=== PATIENT | female | born 1940 | race Two or more races ===

== ENCOUNTER 2018-09-20 16:09 | Inpatient (IN) | payer OTHER ==
[~2018-09-20] VITALS: Ht 149.9 cm; Wt 76.9 kg
[~2018-09-20 16:09] MED LIST: DIGO0.124; FELO5TAB; FURO20TA3; METO25TA62; NIAC500T58; OMEP20TA44; VALS160T53; WARF5INJ
[2018-09-20 16:48] LABS: Basophils # (auto) 0.1 uL; Eosinophils # (auto) 0.1 uL; Hematocrit 35.2 % (36.0-46.0); Hemoglobin 10.9 g/dL (12.2-16.2); Lymphocytes # (auto) 1.2 uL; Lymphocytes % (auto) 15.4 % (10.0-50.0); Mean Corpuscular Hemoglobin 22.6 pg (28.0-32.0); Mean Corpuscular Hgb Conc. 30.9 g/dL (32.0-36.0); Mean Corpuscular Volume 73.2 fL (80.0-100.0); Monocytes # (auto) 1.2 uL; Monocytes % (auto) 14.3 % (0.0-12.0); Neutrophils # (auto) 5.5 uL; Neutrophils % (auto) 68.3 % (37.0-80.0); Nucleated Red Blood Cells % 0.3 %; Platelet Count (auto) 358 10^3/uL (140-450); Red Blood Cells 4.81 10^6/uL (4.0-5.20); Red Cell Distribution Width 19.9 % (11.8-14.3); White Blood Cell 8.1 10^3/uL (4.4-10.8)
[2018-09-20 17:05] LABS: Alanine Aminotransferase 16 U/L (13-56); Albumin 3.7 g/dL (3.4-5.0); Anion Gap 11 (5-15); Blood Urea Nitrogen 8 mg/dL (7-18); Calcium 8.3 mg/dL (8.5-10.1); Carbon Dioxide 25 mmol/L (21-32); Chloride 100 mmol/L (98-107); Glucose 102 mg/dL (74-106); Sodium 136 mmol/L (136-145)
[2018-09-20 17:10] LABS: Alkaline Phosphatase 114 U/L (45-117); Aspartate Aminotransferase 18 U/L (15-37); BUN/Creatinine Ratio 11.1; Bilirubin, Total 0.5 mg/dL (0.2-1.0); GFR African American 100 mL/min; GFR Non-African American 83 mL/min; Total Protein 8.3 g/dL (6.4-8.2)
[2018-09-20] MEDS ORDERED: SODIUM CHLORIDE 0.9% 1,000 ML IV ONE (17:13)
[2018-09-20 17:40] LABS: Magnesium 1.7 mg/dL (1.6-2.6)
[2018-09-20 18:05] LABS: INR 1.81 (0.9-1.15); Partial Thromboplastin Time 36.1 sec (23.78-33.04); Prothrombin Time 18.7 sec (9.27-12.13)
[2018-09-20 18:08] LABS: Urine Bacteria NONE SEEN /hpf (None Seen); Urine Blood 1+ /uL (Negative); Urine Specific Gravity 1.016 (1.001-1.035); Urine WBC 5 /hpf (0 - 5)
[2018-09-20] MEDS ORDERED: cefTRIAXone 1GM/50ML D5W 50 ML IV ONE (19:00)
[2018-09-20] MEDS ORDERED: TEMAZEPAM 15 MG CAP PO PRN (21:00)
[2018-09-20] MEDS ORDERED: ONDANSETRON HCL 4 MG/2 ML VIAL IV PRN (21:00)
[2018-09-20] MEDS ORDERED: DOCUSATE SOD 100 MG CAP PO PRN (21:15)
--- NOTE | 2018-09-20 23:00 | NUR ---
Telemetry admit from [facility] admitted to Telemetry unit after SBAR received. Patient oriented to MONTEZ JOHNSON RN primary RN, unit, room, bed, and unit policies regarding patient care and visiting hours. Patient now on continuous telemetry monitoring, tele box # 2 and telemetry reading on arrival to unit is SR with PVC. Patient placed on bedside oxygen, weighed by bedscale and encouraged to call if they need something. All questions and concerns addressed, patient verbalized understanding. Addendum: 09/21/18 at 0519 by MONTEZ JOHNSON RN RN Upon admission, Patient's daughter was at bedside, when patient was asked about the flu and PNA vaccinations, patient refused to have either vaccine d/t patient stating she gets very bad reactions to them and feels as if she is going to . Patient verbalized that she does not want either vaccine now or upon discharge.
[2018-09-20 23:30] VITALS: BP 154/79
[2018-09-20] MEDS: HYDROcodone-ACET 5/325MG TAB PO PRN (23:43)
[2018-09-20 23:45] VITALS: BP 154/79
[2018-09-21] VITALS (8 sets, daily range): BP systolic 100–149; BP diastolic 59–78
--- NOTE | 2018-09-21 00:54 | NUR ---
Ricky PENG RN received call from [facility] regarding patient showing a change in rhythm on her tele monitor and was showing possible A-fib. RN performed a STAT EKG per protocol and confirmed A-fib. Vitals were also obtained and patient had a BP of 155/108 and a HR of 126. Patient was asymptomatic and complaining of no chest pain or SOB. Patient was calm and relaxed and asking RN for some water. Patient complained of no discomfort or distress. Hospitalist was paged and notified of patients condition/ situation. New orders were obtained. Patient was calm and resting peacefully in bed.
[2018-09-21] MEDS ORDERED: DILTIAZEM HCL 60 MG TAB PO ONE (02:00)
[2018-09-21] MEDS: FUROSEMIDE 40 MG TAB PO SCH ×2 (05:30→17:07)
[2018-09-21 05:59] LABS: Basophils # (auto) 0.1 uL; Eosinophils # (auto) 0 uL; Nucleated Red Blood Cells % 0.1 %; Red Cell Distribution Width 19.5 % (11.8-14.3)
[2018-09-21 06:03] LABS: Basophils % (auto) 0.9 % (0.0-2.0); Eosinophils % (auto) 0.7 % (0.0-7.0); Hematocrit 32.2 % (36.0-46.0); Hemoglobin 10.1 g/dL (12.2-16.2); Lymphocytes % (auto) 16.6 % (10.0-50.0); Mean Corpuscular Hemoglobin 22.9 pg (28.0-32.0); Mean Corpuscular Hgb Conc. 31.5 g/dL (32.0-36.0); Mean Corpuscular Volume 72.7 fL (80.0-100.0); Monocytes % (auto) 15.9 % (0.0-12.0); Neutrophils # (auto) 3.9 uL; Neutrophils % (auto) 65.9 % (37.0-80.0); Platelet Count (auto) 300 10^3/uL (140-450); Red Blood Cells 4.42 10^6/uL (4.0-5.20)
[2018-09-21 06:14] LABS: INR 1.58 (0.9-1.15); Partial Thromboplastin Time 34.4 sec (23.78-33.04); Prothrombin Time 16.5 sec (9.27-12.13)
[2018-09-21 06:17] LABS: BUN/Creatinine Ratio 17.6; Calcium 8.1 mg/dL (8.5-10.1); Potassium 3.9 mmol/L (3.5-5.1)
--- NOTE | 2018-09-21 07:30 | NUR ---
Opening Shift Note Received report from night nurse. Assumed care of patient, awake and alert. No S/S of distress/SOB or pain. Noted very weak and cannot lift herself. Instructed on POC and to call for assist PRN, will continue to monitor for changes Q1hr and PRN.
[2018-09-21] MEDS: PANTOPRAZOLE 40 MG TAB PO SCH (09:15)
[2018-09-21] MEDS: PHENAZOPYRIDINE HCL 100 MG TAB PO SCH ×3 (09:16→17:07)
[2018-09-21] MEDS ORDERED: METF-370 PO (10:16)
[2018-09-21] MEDS ORDERED: ALPR0.254 PO (10:16)
[2018-09-21] MEDS ORDERED: DILT240C49 PO (10:16)
[2018-09-21] MEDS ORDERED: ESCI10TA PO (10:16)
[2018-09-21] MEDS ORDERED: WARF5TAB71 PO (10:16)
[2018-09-21] MEDS ORDERED: ROSU10TA16 PO (10:16)
[2018-09-21] MEDS: ACETAMINOPHEN 500 MG TAB PO PRN (11:01)
--- NOTE | 2018-09-21 11:15 | NUR ---
DR. Pablo Villaseñor at bedside. Received verbal order to continue some POM: xanax, pro air breathing treatments every 6 hours, potassium 10mg PO daily, lipitor 20mg po at HS, accucheck ACHS with mild sliding scale, lexapro 10mg 1 tab daily, then remove restoril. Will continue care.
--- NOTE | 2018-09-21 11:20 | NUR ---
CALLED R.T. AND ASKED ABOUT THE ALTERNATIVE BREATHING TREATMENT FOR PRO-AIR INHALER. RT SAID WE CAN GIVE PATIENT ALBUTEROL AND ATROVENT. WILL CONTINUE CARE.
[2018-09-21] MEDS ORDERED: DEXTROSE (50%) 50ML SYRG IV PRN (11:30)
[2018-09-21] MEDS: InsuLIN REG 1unit/0.01ml Soln (100units/ml) SC SCH ×3 (11:30→22:00)
[2018-09-21] MEDS: ACCU-CHEK COMFORT CURVE STRIP VI SCH ×3 (11:40→22:00)
[2018-09-21] MEDS: DILTIAZEM HCL 120MG ER CAP PO SCH (11:40)
[2018-09-21] MEDS ORDERED: ALBUTEROL SULF 2.5 MG/0.5ML(0.5%) NEB SOLN NEB SCH (12:00)
[2018-09-21] MEDS: IPRATROPIUM BROM 0.5 MG/2.5ML INH SOL NEB SCH ×2 (14:18→18:43)
[2018-09-21] MEDS: ALBUTEROL SULF 2.5 MG/0.5ML(0.5%) NEB SOLN NEB SCH ×2 (14:18→18:43)
[2018-09-21] MEDS ORDERED: WARFARIN SODIUM 5 MG TAB PO ONE (17:00)
--- NOTE | 2018-09-21 18:21 | NUR ---
PATIENT REFUSED DINNER, SAID THAT SHE IS TOO NAUSEOUS TO EAT. GAVE ZOFRAN 4MG IV PRN FOR N/V ORDERED BY . WILL CONTINUE CARE. Addendum: 09/21/18 at 1823 by CALEB SANON RN WRONG PATIENT. DISREGARD ENTRY.
[2018-09-21] MEDS: HYDROcodone-ACET 5/325MG TAB PO PRN (19:35)
--- NOTE | 2018-09-21 20:46 | NUR ---
Opening Shift Note Assumed care of patient, awake and alert. No S/S of distress/SOB or pain. Insructed on POC and to call for assist PRN, will continue to monitor for changes Q1hr and PRN. Patient with expiratory wheezes. She is assisted to BR. Increased weakness noted. Patient complains of pain to lower abdomen and back. Medicated with [place] as ordered PRN. Family members at bedside.
[2018-09-21] MEDS: cefTRIAXone 1GM/50ML D5W 50 ML IV SCH (21:39)
[2018-09-21] MEDS: ALPRAZolam 0.25 MG TAB PO SCH (22:07)
[2018-09-21] MEDS: ATORVASTATIN 20 MG TAB PO SCH (22:08)
[2018-09-22] MEDS: ALBUTEROL SULF 2.5 MG/0.5ML(0.5%) NEB SOLN NEB SCH ×4 (00:25→19:51)
[2018-09-22] MEDS: IPRATROPIUM BROM 0.5 MG/2.5ML INH SOL NEB SCH ×4 (00:25→19:51)
[2018-09-22 02:59] VITALS: BP 124/69
[2018-09-22 05:00] VITALS: BP 118/62
[2018-09-22 05:52] LABS: INR 1.27 (0.9-1.15); Prothrombin Time 13.4 sec (9.27-12.13)
[2018-09-22] MEDS: FUROSEMIDE 40 MG TAB PO SCH ×2 (06:00→18:04)
[2018-09-22] MEDS: HYDROcodone-ACET 5/325MG TAB PO PRN ×2 (06:01→19:14)
[2018-09-22] MEDS: InsuLIN REG 1unit/0.01ml Soln (100units/ml) SC SCH ×4 (06:41→22:07)
[2018-09-22 07:20] LABS: Hematocrit 33.6 % (36.0-46.0); Hemoglobin 10.5 g/dL (12.2-16.2); Mean Corpuscular Hemoglobin 22.8 pg (28.0-32.0); Mean Corpuscular Hgb Conc. 31.1 g/dL (32.0-36.0); Mean Corpuscular Volume 73.1 fL (80.0-100.0); Platelet Count (auto) 301 10^3/uL (140-450); White Blood Cell 6.2 10^3/uL (4.4-10.8)
[2018-09-22 07:22] LABS: Band Neutrophils % (manual) 0; Blast Cells 0; Eosinophils % (manual) 0 (0-7); Metamyelocytes % 0; Myelocytes % 0; Promyelocytes % 0; Reactive Lymphocytes 0
--- NOTE | 2018-09-22 07:30 | NUR ---
PT AWAKE, ALERT, ORIENTED, COOPERATIVE OF CARE. DENIES PAIN AT MOMENT. EFFORTLESS BREATHING ON 3LNC. IV PRESENT TO LFA#22. BED IN LOWEST POSITION, CALL LIGHT WITHIN REACH. PROVIDED COMFORTABLE ENVIRONMENT. PATHWAY LEAR OF CLUTTER.
[2018-09-22 08:14] VITALS: BP 96/41
[2018-09-22] MEDS: PHENAZOPYRIDINE HCL 100 MG TAB PO SCH ×3 (08:46→18:04)
[2018-09-22] MEDS: CITALOPRAM HYDROBR 20 MG TAB PO SCH (08:52)
[2018-09-22] MEDS: POTASSIUM CHL 10 Meq TABLET PO SCH (08:52)
[2018-09-22] MEDS: PANTOPRAZOLE 40 MG TAB PO SCH (08:53)
[2018-09-22 09:24] LABS: Basophils % (manual) 1 (0.0-2.0); Lymphocytes % (manual) 18 (10.0-50.0); Monocytes % (manual) 8 (0-12)
[2018-09-22] MEDS: ACCU-CHEK COMFORT CURVE STRIP VI SCH ×3 (11:30→22:06)
[2018-09-22 11:53] VITALS: BP 131/69
[2018-09-22] MEDS: DILTIAZEM HCL 120MG ER CAP PO SCH (12:18)
[2018-09-22] MEDS ORDERED: OMEP20TA PO (13:12)
[2018-09-22] MEDS ORDERED: FURO20TA3 PO (13:12)
--- NOTE | 2018-09-22 14:30 | NUR ---
URINE SPECIMEN COLLECTED SENT TO LAB
[2018-09-22 16:30] VITALS: BP 102/43
[2018-09-22] MEDS ORDERED: WARFARIN SODIUM 2 MG TAB PO ONE (17:00)
--- NOTE | 2018-09-22 19:05 | NUR ---
Opening Shift Note Assumed care of patient, awake and alert, resting in bed watching television. No S/S of distress or SOB, no pain noted or reported at this time. Respirations are even and unlabored. Updated on pt. POC and instructed to call for assist as needed, pt verbalized understanding. Bed locked in lowest position, side rails up x2, call light within reach. Will continue to monitor for changes Q1hr and PRN.
[2018-09-22 22:00] VITALS: BP 107/60
[2018-09-22] MEDS: ALPRAZolam 0.25 MG TAB PO SCH (22:06)
[2018-09-22] MEDS: cefTRIAXone 1GM/50ML D5W 50 ML IV SCH (22:06)
[2018-09-22] MEDS: ATORVASTATIN 20 MG TAB PO SCH (22:06)
[2018-09-23] MEDS: IPRATROPIUM BROM 0.5 MG/2.5ML INH SOL NEB SCH ×4 (01:09→20:08)
[2018-09-23] MEDS: ALBUTEROL SULF 2.5 MG/0.5ML(0.5%) NEB SOLN NEB SCH ×4 (01:09→20:07)
[2018-09-23 04:40] VITALS: BP 125/65
[2018-09-23] MEDS: FUROSEMIDE 40 MG TAB PO SCH ×2 (06:24→17:35)
[2018-09-23] MEDS: InsuLIN REG 1unit/0.01ml Soln (100units/ml) SC SCH ×4 (06:25→21:56)
[2018-09-23] MEDS: ACCU-CHEK COMFORT CURVE STRIP VI SCH ×4 (06:25→21:48)
[2018-09-23 06:53] LABS: Red Blood Cells 4.52 10^6/uL (4.0-5.20); Red Cell Distribution Width 19.7 % (11.8-14.3)
[2018-09-23 06:55] LABS: Hematocrit 33.2 % (36.0-46.0); Hemoglobin 10.2 g/dL (12.2-16.2); Mean Corpuscular Hemoglobin 22.5 pg (28.0-32.0); Mean Corpuscular Hgb Conc. 30.6 g/dL (32.0-36.0); Mean Corpuscular Volume 73.5 fL (80.0-100.0); Platelet Count (auto) 283 10^3/uL (140-450); White Blood Cell 4.4 10^3/uL (4.4-10.8)
[2018-09-23 07:00] LABS: Basophils % (manual) 0 (0.0-2.0); Blast Cells 0; Eosinophils % (manual) 0 (0-7); Metamyelocytes % 0; Myelocytes % 0; Promyelocytes % 0; Reactive Lymphocytes 0
[2018-09-23 07:19] LABS: INR 1.34 (0.9-1.15); Prothrombin Time 13.3 sec (9.27-12.13)
[2018-09-23 07:43] LABS: Band Neutrophils % (manual) 2; Lymphocytes % (manual) 31 (10.0-50.0); Monocytes % (manual) 7 (0-12)
[2018-09-23] MEDS: POTASSIUM CHL 10 Meq TABLET PO SCH (08:59)
[2018-09-23] MEDS: PHENAZOPYRIDINE HCL 100 MG TAB PO SCH ×3 (08:59→17:34)
[2018-09-23] MEDS: PANTOPRAZOLE 40 MG TAB PO SCH (08:59)
[2018-09-23 09:00] VITALS: BP 126/64
[2018-09-23] MEDS: CITALOPRAM HYDROBR 20 MG TAB PO SCH (09:00)
--- NOTE | 2018-09-23 09:00 | NUR ---
PASSED MORNING MEDICATIONS, PT TOLERATED WELL. PT DENIES DISCOMFORT AT MOMENT. ON 3LNC WITH EXPIRATORY WHEEZES. IV PRESENT TO LFA#22. BED IN LOWEST POSITION, CALL LIGHT WITHIN REACH. WILL CONTINUE TO MONITOR.
[2018-09-23] MEDS: DILTIAZEM HCL 120MG ER CAP PO SCH (09:04)
[2018-09-23] MEDS ORDERED: methylPREDNISolone SOD SUCC 125 MG/2 ML VL IV ONE (13:00)
[2018-09-23 13:20] VITALS: BP 137/69
--- NOTE | 2018-09-23 15:53 | NUR ---
DR. GARAY MADE AWARE OF ABG ON ROOM AIR RESULTS AND CHEST X-RAY. RECEIVED ORDER FOR HOME O2 CONSULTATION. ORDER IN. CLOCK MECHANIC NOTIFIED.
--- NOTE | 2018-09-23 16:20 | NUR ---
Incentive spirometer and teaching provided with return demonstration. Daughter at bedside for teaching session. Patient is compliant in care.
[2018-09-23 17:00] VITALS: BP 122/67
[2018-09-23] MEDS ORDERED: WARFARIN SODIUM 2 MG TAB PO ONE (17:00)
--- NOTE | 2018-09-23 18:02 | NUR ---
Received call from monitor, patient presenting arrhythmia brief burst of V-tach, checked on patient and patient was exerting self; patient stated. Patient is asymptomatic, denies chest palpitations, pressure. Call light within reach.
--- NOTE | 2018-09-23 19:15 | NUR ---
Opening Shift Note Assumed care of patient, awake and alert, resting in bed with family at bedside. No S/S of distress or SOB, no pain noted or reported at this time. Respirations are even and unlabored on 3L NC. Updated pt. on POC and instructed to call for assist as needed, pt verbalized understanding. Bed locked in lowest position, side rails up x2, call light within reach. Will continue to monitor for changes Q1hr and PRN.
[2018-09-23] MEDS: cefTRIAXone 1GM/50ML D5W 50 ML IV SCH (21:48)
[2018-09-23] MEDS: ALPRAZolam 0.25 MG TAB PO SCH (21:48)
[2018-09-23] MEDS: methylPREDNISolone SOD SUCC 125 MG/2 ML VL IV SCH (21:48)
[2018-09-23] MEDS: ATORVASTATIN 20 MG TAB PO SCH (21:48)
[2018-09-23 22:00] VITALS: BP 122/74
[2018-09-24] MEDS: ALBUTEROL SULF 2.5 MG/0.5ML(0.5%) NEB SOLN NEB SCH ×4 (01:03→20:07)
[2018-09-24] MEDS: IPRATROPIUM BROM 0.5 MG/2.5ML INH SOL NEB SCH ×4 (01:03→20:07)
[2018-09-24 04:55] VITALS: BP 150/79
[2018-09-24 06:30] LABS: INR 1.48 (0.9-1.15); Partial Thromboplastin Time 33.3 sec (23.78-33.04); Prothrombin Time 15.5 sec (9.27-12.13)
[2018-09-24] MEDS: FUROSEMIDE 40 MG TAB PO SCH ×2 (06:33→17:27)
[2018-09-24] MEDS: InsuLIN REG 1unit/0.01ml Soln (100units/ml) SC SCH ×4 (06:33→22:08)
[2018-09-24] MEDS: methylPREDNISolone SOD SUCC 125 MG/2 ML VL IV SCH ×3 (06:33→22:07)
[2018-09-24] MEDS: ACCU-CHEK COMFORT CURVE STRIP VI SCH ×4 (06:34→22:08)
--- NOTE | 2018-09-24 07:56 | NUR ---
CLOSING SHIFT NOTE: Report given to DAY RNGladis. Endorsed care of patient.
[2018-09-24] MEDS: CITALOPRAM HYDROBR 20 MG TAB PO SCH (08:37)
[2018-09-24] MEDS: PHENAZOPYRIDINE HCL 100 MG TAB PO SCH ×3 (08:37→18:23)
[2018-09-24] MEDS: POTASSIUM CHL 10 Meq TABLET PO SCH (08:37)
[2018-09-24] MEDS: DILTIAZEM HCL 120MG ER CAP PO SCH (08:37)
[2018-09-24] MEDS: PANTOPRAZOLE 40 MG TAB PO SCH (08:37)
[2018-09-24 09:08] VITALS: BP 124/68
--- NOTE | 2018-09-24 10:28 | NUR ---
assessment Patient is a 78 year old female who is alert and oriented. Patients cognitive abilities are intact. Prior to admission patient lived home alone and functioned with assistance from her family. Per patient her grandson stays with her at night. Per patient she has a fww, and a cane for home use. Patients PCP is Dr Mitchell. Per patient she will return home to her prior living arrangements post discharge and family will transport her home. I informed patient she has a right to speak to a director of social work regarding all care. I informed patient she has a right to participate in any and all discharge planning. Patient is aware of visiting hours on the hospital floor. I informed patient she has a right to privacy. Patient does not have a POA and advanced directive. I have offered patient information on POA and advanced directives. I informed the patient the advantages and benefits of having an Advanced Directive. Patient verbalized understanding and agreed to discharge plan. Per ss consult Home 02 at 4LPM nasal canula. MD order has been sent to . Waiting on ETA now. Addendum: 09/24/18 at 1121 by Jemima Mcgee Amended: Links added.
[2018-09-24 11:47] VITALS: BP 115/63
--- NOTE | 2018-09-24 12:05 | NUR ---
1200 MED NEB TX NOT ADMINISTERED. PT AT PROCEDURE AT THIS TIME. RN LAVERNE AWARE OF TX NON ADMINISTERED. WILL CONTINUE TO MONITOR.
[2018-09-24] MEDS ORDERED: IOHEXOL 350 MG/ML 100ML IJ ONE (12:06)
--- NOTE | 2018-09-24 14:16 | NUR ---
oxygen saturation on room air O2 saturation stayed between 87-88% on room air
--- NOTE | 2018-09-24 14:59 | NUR ---
Nutrition Assessment Notes please see attached link for complete assessment Est. Needs ABW [id number] kcal (20-23 kcal/kgBW), 61-67 gms pro (1.0-1.1 gms/kgBW). Will continue to monitor pertinent labs and reassess nutrient need prn Addendum: 09/24/18 at [address] Amended: Links added.
[2018-09-24 16:32] VITALS: BP 157/83
--- NOTE | 2018-09-24 16:42 | NUR ---
re-assessment has delivered 02 to bedside. Addendum: 09/24/18 at 1642 by Jemima CEJA Amended: Links added.
[2018-09-24] MEDS ORDERED: WARFARIN SODIUM 2 MG TAB PO ONE (17:00)
[2018-09-24] MEDS: cefTRIAXone 1GM/50ML D5W 50 ML IV SCH (20:06)
[2018-09-24 20:54] VITALS: BP 157/83
[2018-09-24 22:00] VITALS: BP 138/60
[2018-09-24] MEDS: ATORVASTATIN 20 MG TAB PO SCH (22:07)
[2018-09-24] MEDS: ALPRAZolam 0.25 MG TAB PO SCH (22:07)
[2018-09-25] MEDS: ALBUTEROL SULF 2.5 MG/0.5ML(0.5%) NEB SOLN NEB SCH ×4 (00:12→18:29)
[2018-09-25] MEDS: IPRATROPIUM BROM 0.5 MG/2.5ML INH SOL NEB SCH ×4 (00:12→18:29)
[2018-09-25 05:33] VITALS: BP 151/86
[2018-09-25] MEDS: methylPREDNISolone SOD SUCC 125 MG/2 ML VL IV SCH ×3 (06:01→21:23)
[2018-09-25] MEDS: FUROSEMIDE 40 MG TAB PO SCH ×2 (06:01→17:33)
[2018-09-25 06:23] LABS: INR 2.03 (0.9-1.15); Prothrombin Time 20.9 sec (9.27-12.13)
[2018-09-25 06:27] LABS: Basophils # (auto) 0 uL; Basophils % (auto) 0.1 % (0.0-2.0); Eosinophils # (auto) 0 uL; Hemoglobin 10.4 g/dL (12.2-16.2); Mean Corpuscular Hemoglobin 22.7 pg (28.0-32.0); Monocytes # (auto) 0.3 uL
[2018-09-25 06:29] LABS: Hematocrit 33.6 % (36.0-46.0); Lymphocytes # (auto) 0.9 uL; Lymphocytes % (auto) 10.9 % (10.0-50.0); Mean Corpuscular Volume 73.3 fL (80.0-100.0); Monocytes % (auto) 3.5 % (0.0-12.0); Neutrophils # (auto) 7.1 uL; Neutrophils % (auto) 85.5 % (37.0-80.0); Nucleated Red Blood Cells % 0.1 %; Platelet Count (auto) 310 10^3/uL (140-450); Red Blood Cells 4.58 10^6/uL (4.0-5.20); Red Cell Distribution Width 19.3 % (11.8-14.3); White Blood Cell 8.3 10^3/uL (4.4-10.8)
[2018-09-25] MEDS: InsuLIN REG 1unit/0.01ml Soln (100units/ml) SC SCH ×4 (06:56→21:24)
[2018-09-25] MEDS: ACCU-CHEK COMFORT CURVE STRIP VI SCH ×4 (06:57→21:24)
--- NOTE | 2018-09-25 07:50 | NUR ---
Opening Shift Note Assumed care of patient, resting in bed with eyes closed, respirations even and unlabored. No S/S of distress/SOB or pain. POC board updated, will continue to monitor for changes Q1hr and PRN. NOTE: Home oxygen tank at bedside.
[2018-09-25 09:00] VITALS: BP 154/80
[2018-09-25] MEDS: PANTOPRAZOLE 40 MG TAB PO SCH (09:16)
[2018-09-25] MEDS: PHENAZOPYRIDINE HCL 100 MG TAB PO SCH ×3 (09:16→17:33)
[2018-09-25] MEDS: POTASSIUM CHL 10 Meq TABLET PO SCH (09:16)
[2018-09-25] MEDS: CITALOPRAM HYDROBR 20 MG TAB PO SCH (09:17)
[2018-09-25] MEDS: DILTIAZEM HCL 120MG ER CAP PO SCH (09:17)
--- NOTE | 2018-09-25 09:25 | NUR ---
SOLUTIONS ARCHITECT ASSISTED WITH EDUCATING PATIENT ON MORNING MEDICATIONS.
--- NOTE | 2018-09-25 10:33 | NUR ---
ROUNDDELORIS Villaseñor rounding on patient with primary RN and patients daughter at bedside. Plan of care discussed with daughters assistance for translation. Pulmonary consult will be placed by .
--- NOTE | 2018-09-25 10:34 | NUR ---
Dr. Oscar made aware of pulmonary consult.
--- NOTE | 2018-09-25 10:40 | NUR ---
DAUGHTER DOLLY SARAH [phone] WOULD LIKE UPDATES ON PATIENT.
[2018-09-25 13:00] VITALS: BP 148/84
--- NOTE | 2018-09-25 14:20 | NUR ---
VTACH Received call from [facility] stating patient had run of VTACH. Patient resting in bed, no of complaints of chest pain or s/s distress. Attempted to call Dr Villaseñor unsuccessful. inbound call center representative hospitalist Jose Fernandez made. Tele strip placed in chart.
[2018-09-25 17:00] VITALS: BP 128/66
[2018-09-25] MEDS ORDERED: WARFARIN SODIUM 2 MG TAB PO ONE (17:00)
--- NOTE | 2018-09-25 19:30 | NUR ---
Opening shift note Patient in bed alert and oriented x 4, verbally coherent, able to make needs known in Luxembour[place]. Daughter at bedside for translation. Patient's respiration even and unlabored, denies pain and discomfort at this time. Plan of care discussed, patient verbalized understanding. All needs attended, will continue to monitor.
[2018-09-25] MEDS: cefTRIAXone 1GM/50ML D5W 50 ML IV SCH (21:15)
[2018-09-25] MEDS: ATORVASTATIN 20 MG TAB PO SCH (21:18)
[2018-09-25] MEDS: ACETAMINOPHEN 500 MG TAB PO PRN (21:19)
[2018-09-25] MEDS: ALPRAZolam 0.25 MG TAB PO SCH (21:19)
[2018-09-25 21:45] VITALS: BP 144/75
[2018-09-26] MEDS: ALBUTEROL SULF 2.5 MG/0.5ML(0.5%) NEB SOLN NEB SCH ×4 (00:23→18:51)
[2018-09-26] MEDS: IPRATROPIUM BROM 0.5 MG/2.5ML INH SOL NEB SCH ×4 (00:23→18:51)
[2018-09-26 04:50] VITALS: BP 149/69
[2018-09-26] MEDS: methylPREDNISolone SOD SUCC 125 MG/2 ML VL IV SCH ×3 (05:33→21:08)
[2018-09-26] MEDS: FUROSEMIDE 40 MG TAB PO SCH ×2 (05:36→17:49)
[2018-09-26] MEDS: ACCU-CHEK COMFORT CURVE STRIP VI SCH ×4 (05:48→21:08)
[2018-09-26] MEDS: InsuLIN REG 1unit/0.01ml Soln (100units/ml) SC SCH ×4 (05:49→21:09)
[2018-09-26 07:00] LABS: INR 2.29 (0.9-1.15); Partial Thromboplastin Time 33.5 sec (23.78-33.04); Prothrombin Time 23.4 sec (9.27-12.13)
--- NOTE | 2018-09-26 07:30 | NUR ---
Opening Shift Note Assumed care of patient, awake and alert, sitting up in bed eating breakfast. No S/S of distress/SOB or pain. Instructed on POC and to call for assist PRN, will continue to monitor for changes Q1hr and PRN.
[2018-09-26] MEDS: PHENAZOPYRIDINE HCL 100 MG TAB PO SCH ×3 (08:46→17:49)
[2018-09-26 08:53] VITALS: BP 139/69
--- NOTE | 2018-09-26 09:01 | NUR ---
URINE CULTURE Patient educated on importance of urine sample collection and proper technique. Repeat urine culture obtained and sent to lab.
[2018-09-26] MEDS: DILTIAZEM HCL 120MG ER CAP PO SCH (09:14)
[2018-09-26] MEDS: PANTOPRAZOLE 40 MG TAB PO SCH (09:14)
[2018-09-26] MEDS: CITALOPRAM HYDROBR 20 MG TAB PO SCH (09:14)
[2018-09-26] MEDS: POTASSIUM CHL 10 Meq TABLET PO SCH (09:14)
[2018-09-26 13:00] VITALS: BP 161/97
[2018-09-26 14:00] VITALS: BP 140/81
[2018-09-26] MEDS ORDERED: HYDROcodone-ACET 5/325MG TAB PO PRN (16:45)
[2018-09-26] MEDS ORDERED: WARFARIN SODIUM 2 MG TAB PO ONE (17:00)
[2018-09-26 17:05] VITALS: BP 140/74
--- NOTE | 2018-09-26 19:30 | NUR ---
Opening shift note Patient ambulating from bathroom to bed assisted by PLATE MOLDER. Patient alert and oriented x 4, verbally coherent, able to make needs known. Patient denies pain and discomfort at this time. Plan of care discussed, patient verbalized understanding. Patient requested for Jello. All needs attended, will continue to monitor.
[2018-09-26] MEDS: ATORVASTATIN 20 MG TAB PO SCH (21:08)
[2018-09-26] MEDS: ALPRAZolam 0.25 MG TAB PO SCH (21:08)
[2018-09-26] MEDS: cefTRIAXone 1GM/50ML D5W 50 ML IV SCH (21:08)
[2018-09-26 21:41] VITALS: BP 155/76
[2018-09-27] VITALS (7 sets, daily range): BP systolic 138–157; BP diastolic 67–96
[2018-09-27] MEDS: IPRATROPIUM BROM 0.5 MG/2.5ML INH SOL NEB SCH ×4 (00:48→19:16)
[2018-09-27] MEDS: ALBUTEROL SULF 2.5 MG/0.5ML(0.5%) NEB SOLN NEB SCH ×4 (00:48→19:16)
[2018-09-27] MEDS: ACETAMINOPHEN 500 MG TAB PO PRN (04:25)
[2018-09-27 04:53] LABS: Hematocrit 35.6 % (36.0-46.0); Mean Corpuscular Hemoglobin 22.4 pg (28.0-32.0); White Blood Cell 7.5 10^3/uL (4.4-10.8)
[2018-09-27 04:56] LABS: Mean Corpuscular Hgb Conc. 30.8 g/dL (32.0-36.0); Mean Corpuscular Volume 72.8 fL (80.0-100.0); Platelet Count (auto) 325 10^3/uL (140-450); Red Blood Cells 4.89 10^6/uL (4.0-5.20); Red Cell Distribution Width 19.1 % (11.8-14.3)
[2018-09-27 05:04] LABS: Basophils % (manual) 0 (0.0-2.0); Blast Cells 0; Eosinophils % (manual) 0 (0-7); Metamyelocytes % 0; Myelocytes % 0; Promyelocytes % 0; Reactive Lymphocytes 0
[2018-09-27 05:07] LABS: INR 2.48 (0.9-1.15); Prothrombin Time 25.2 sec (9.27-12.13)
[2018-09-27 05:09] LABS: Calcium 8.1 mg/dL (8.5-10.1); Potassium 3.4 mmol/L (3.5-5.1)
[2018-09-27 05:11] LABS: BUN/Creatinine Ratio 24.6
[2018-09-27] MEDS: methylPREDNISolone SOD SUCC 125 MG/2 ML VL IV SCH ×3 (05:42→21:28)
[2018-09-27] MEDS: FUROSEMIDE 40 MG TAB PO SCH ×2 (05:43→17:07)
[2018-09-27] MEDS: InsuLIN REG 1unit/0.01ml Soln (100units/ml) SC SCH ×4 (05:48→21:29)
[2018-09-27] MEDS: ACCU-CHEK COMFORT CURVE STRIP VI SCH ×4 (05:48→21:29)
[2018-09-27 06:33] LABS: Band Neutrophils % (manual) 2; Lymphocytes % (manual) 10 (10.0-50.0); Monocytes % (manual) 1 (0-12)
--- NOTE | 2018-09-27 07:20 | NUR ---
Opening Shift Note Received report from Domonique VALE. Assumed care of patient, awake and alert. No S/S of distress/SOB or pain. NOted Latvian speaking, speaks and understands little Lebanese. Instructed on POC and to call for assist PRN, will continue to monitor for changes Q1hr and PRN.
[2018-09-27] MEDS: PHENAZOPYRIDINE HCL 100 MG TAB PO SCH ×3 (08:21→17:07)
[2018-09-27] MEDS: DILTIAZEM HCL 120MG ER CAP PO SCH (10:21)
[2018-09-27] MEDS: PANTOPRAZOLE 40 MG TAB PO SCH (10:21)
[2018-09-27] MEDS: POTASSIUM CHL 10 Meq TABLET PO SCH (10:21)
[2018-09-27] MEDS: CITALOPRAM HYDROBR 20 MG TAB PO SCH (10:21)
--- NOTE | 2018-09-27 11:10 | NUR ---
Dr. Thompson at bedside. Cardiology consult ff up done.
--- NOTE | 2018-09-27 14:28 | NUR ---
Dr Dumont at bedside.
--- NOTE | 2018-09-27 14:54 | NUR ---
Nutrition Follow-up Notes Wt.: 78.1 kg as of yesterday Pt's on oxygen via nasal cannula, asleep, no immediate family member at bedside during rounds this morning. Pt's no signs of distress noted earlier, currently on Consistent Carb diet with adequate PO intake aeb 90% ave. consumed meals (x7) in last 2.5 days. Noted pt's for active Cardiology and Pulmonary consults. Est. Needs ABW [id number] kcal (20-23 kcal/kgBW), 61-67 gms pro (1.0-1.1 gms/kgBW). Will continue to monitor pertinent labs and reassess nutrient need prn Labs: Gluc 277 H, Cl 94 L, K 34 L, CO2 34 H, Ca 8.1 H; HbA1c 7.0 H Skin: Ladarius scale 20 low risk, skin intact per plaster and stucco worker. GI: Pt had 1 BM this morning per plaster and stucco worker. PES: Altered nutrition related lab values r/t current/chronic medical condition aeb hyperglcyemia, elev A1C, hypocalcemia Obesity r/t hx food intake more than body requirement aeb 172% IBW, BMI 34.8 kg/m2 and increased body adiposity. Will continue to monitor PO intake, skin status, pertinent labs and weight trend. F/u in 3 to 5 days. Rec.: 1.) Consider Soft Consistent Low Carb: 45 gms/meal,Cardiac: 2 gms Na, Low Chol, Low Fat diet. 2.) Continue close supervision during meals. 2.) Refer pt to CDE/RD for further nutrition education and weight monitoring upon discharge. 3.) Continue current plan of care.
[2018-09-27] MEDS ORDERED: WARFARIN SODIUM 1 MG TAB PO ONE (17:00)
--- NOTE | 2018-09-27 19:00 | NUR ---
Opening Shift Note Assumed care of patient, awake and alert. No S/S of distress/SOB or pain. Instructed on POC and to call for assist PRN, will continue to monitor for changes Q1hr and PRN. Side rails up x2. Bed locked in lowest position. Call light within reach.
[2018-09-27] MEDS: ACETYLCYSTEINE 10 %(100MG/ML) SOL 4ML NEB SCH (19:17)
[2018-09-27] MEDS: cefTRIAXone 1GM/50ML D5W 50 ML IV SCH (21:28)
[2018-09-27] MEDS: ATORVASTATIN 20 MG TAB PO SCH (21:28)
[2018-09-27] MEDS: ALPRAZolam 0.25 MG TAB PO SCH (21:29)
[2018-09-28] MEDS: IPRATROPIUM BROM 0.5 MG/2.5ML INH SOL NEB SCH ×4 (01:19→20:05)
[2018-09-28] MEDS: ALBUTEROL SULF 2.5 MG/0.5ML(0.5%) NEB SOLN NEB SCH ×4 (01:19→20:05)
[2018-09-28] MEDS: ACETYLCYSTEINE 10 %(100MG/ML) SOL 4ML NEB SCH ×4 (01:20→20:05)
--- NOTE | 2018-09-28 01:56 | NUR ---
Rounds Patient in bed asleep with no signs of distress/sob/pain. Will continue to monitor.
[2018-09-28 05:15] VITALS: BP 159/76
[2018-09-28] MEDS: methylPREDNISolone SOD SUCC 125 MG/2 ML VL IV SCH ×3 (06:32→17:22)
[2018-09-28] MEDS: FUROSEMIDE 40 MG TAB PO SCH ×2 (06:32→17:24)
[2018-09-28] MEDS: ACCU-CHEK COMFORT CURVE STRIP VI SCH ×4 (06:32→21:14)
[2018-09-28] MEDS: InsuLIN REG 1unit/0.01ml Soln (100units/ml) SC SCH ×4 (06:33→21:20)
[2018-09-28 06:41] LABS: INR 2.31 (0.9-1.15); Prothrombin Time 23.6 sec (9.27-12.13)
--- NOTE | 2018-09-28 07:07 | NUR ---
Endorsed care to day shift RN.
--- NOTE | 2018-09-28 07:25 | NUR ---
Opening Shift Note Received report from Terence VALE. Assumed care of patient, awake and alert. No S/S of distress/SOB or pain. Assisted to bedside commode, did bowel movement successfully. Instructed on POC and to call for assist PRN, will continue to monitor for changes Q1hr and PRN.
[2018-09-28] MEDS: PHENAZOPYRIDINE HCL 100 MG TAB PO SCH ×3 (07:36→17:23)
[2018-09-28 08:00] VITALS: BP 153/87
[2018-09-28 08:13] VITALS: BP 153/87
[2018-09-28] MEDS: POTASSIUM CHL 10 Meq TABLET PO SCH (09:28)
[2018-09-28] MEDS: DILTIAZEM HCL 120MG ER CAP PO SCH (09:29)
[2018-09-28] MEDS: CITALOPRAM HYDROBR 20 MG TAB PO SCH (09:30)
[2018-09-28] MEDS: PANTOPRAZOLE 40 MG TAB PO SCH (09:31)
[2018-09-28 12:30] VITALS: BP 124/74
[2018-09-28 16:43] VITALS: BP 147/85
[2018-09-28] MEDS ORDERED: WARFARIN SODIUM 2 MG TAB PO ONE (17:00)
[2018-09-28] MEDS: ACETAMINOPHEN 500 MG TAB PO PRN (17:42)
--- NOTE | 2018-09-28 18:20 | NUR ---
IV insertion Anothere IV access obtained for stress test tomorrow, via clean sterile technique by inserting gauge catheter 22 at left forearm after 1 attempt. IV secured properly. No trauma to site. Patient tolerated well.
[2018-09-28] MEDS: cefTRIAXone 1GM/50ML D5W 50 ML IV SCH (21:14)
[2018-09-28] MEDS: ALPRAZolam 0.25 MG TAB PO SCH (21:14)
[2018-09-28] MEDS: ATORVASTATIN 20 MG TAB PO SCH (21:14)
[2018-09-28 22:18] VITALS: BP 141/70
[2018-09-29] MEDS: IPRATROPIUM BROM 0.5 MG/2.5ML INH SOL NEB SCH ×4 (01:36→18:54)
[2018-09-29] MEDS: ALBUTEROL SULF 2.5 MG/0.5ML(0.5%) NEB SOLN NEB SCH ×4 (01:36→18:54)
--- NOTE | 2018-09-29 01:36 | NUR ---
Rounds RT at bedside for a breathing treatment. No signs of distress. Will continue to monitor.
[2018-09-29] MEDS: ACETYLCYSTEINE 10 %(100MG/ML) SOL 4ML NEB SCH ×4 (01:37→18:55)
[2018-09-29 05:39] VITALS: BP 165/81
[2018-09-29] MEDS: methylPREDNISolone SOD SUCC 125 MG/2 ML VL IV SCH ×2 (06:36→17:56)
[2018-09-29] MEDS: FUROSEMIDE 40 MG TAB PO SCH ×2 (06:37→17:57)
[2018-09-29] MEDS: ACCU-CHEK COMFORT CURVE STRIP VI SCH ×4 (06:37→21:08)
[2018-09-29] MEDS: InsuLIN REG 1unit/0.01ml Soln (100units/ml) SC SCH ×4 (06:37→21:08)
[2018-09-29 06:52] LABS: INR 2.57 (0.9-1.15); Partial Thromboplastin Time 31.5 sec (23.78-33.04); Prothrombin Time 26.1 sec (9.27-12.13)
[2018-09-29 06:57] LABS: Potassium 3.1 mmol/L (3.5-5.1)
[2018-09-29 07:02] LABS: Calcium 8.5 mg/dL (8.5-10.1)
[2018-09-29 07:08] LABS: Bilirubin, Total 0.4 mg/dL (0.2-1.0); Total Protein 7.1 g/dL (6.4-8.2)
--- NOTE | 2018-09-29 07:20 | NUR ---
Endorsed care to day shift RN.
[2018-09-29 08:00] VITALS: BP 143/76
[2018-09-29 08:21] VITALS: BP 143/76
[2018-09-29] MEDS ORDERED: ADENOSINE 66 MG in GIVE UN-DILUTED 0 ML IV STA (08:28)
--- NOTE | 2018-09-29 08:32 | NUR ---
TACHYCARDIA Received call from KWABENA stating patient's heart rate was in the 150's. Assessed patient who was in the restroom accompanied by daughter, nasal cannula in position connected to 3L O2. Patient appeared asymptomatic, will continue to monitor.
--- NOTE | 2018-09-29 08:40 | NUR ---
Opening Shift Note Assumed care of patient, awake, alert and oriented x 4. No S/S of distress/SOB or pain. Daughter is at bedside. Pt and daughter instructed on POC and to call for assist PRN. Bed is in lowest locked position. Will continue to monitor for changes Q1hr and PRN.
[2018-09-29] MEDS: PANTOPRAZOLE 40 MG TAB PO SCH (08:55)
[2018-09-29] MEDS: PHENAZOPYRIDINE HCL 100 MG TAB PO SCH ×3 (08:55→17:57)
[2018-09-29] MEDS: CITALOPRAM HYDROBR 20 MG TAB PO SCH (08:55)
[2018-09-29] MEDS: DILTIAZEM HCL 120MG ER CAP PO SCH (08:56)
[2018-09-29] MEDS: POTASSIUM CHL 10 Meq TABLET PO SCH (08:57)
--- NOTE | 2018-09-29 10:10 | NUR ---
OFF UNIT Patient off unit via wheelchair to have stress test performed. Patient showed no s/s of acute distress or pain.
[2018-09-29 10:28] VITALS: BP 154/99
[2018-09-29 16:26] VITALS: BP 129/87
[2018-09-29] MEDS ORDERED: WARFARIN SODIUM 2 MG TAB PO ONE (17:00)
--- NOTE | 2018-09-29 20:00 | NUR ---
Opening shift note Patient in bed alert and oriented x 4, verbally coherent, able to make needs known in [place]raltarian. Translation provided by SOUND ASSISTANT. Patient's respiration even and unlabored, denies pain and discomfort at this time. Plan of care discussed, patient verbalized understanding. All needs attended, will continue to monitor.
[2018-09-29] MEDS: ALPRAZolam 0.25 MG TAB PO SCH (21:04)
[2018-09-29] MEDS: cefTRIAXone 1GM/50ML D5W 50 ML IV SCH (21:04)
[2018-09-29] MEDS: ATORVASTATIN 20 MG TAB PO SCH (21:05)
[2018-09-29 21:30] VITALS: BP 130/59
--- NOTE | 2018-09-29 21:35 | NUR ---
Patient's blood sugar level at 407mg/dl, Insulin per sliding scale administered. Patient asymptomatic, stable not in acute distress. RANI Vaughan made aware per protocol. No new orders received. Will continue to monitor.
--- NOTE | 2018-09-29 22:08 | NUR ---
Received call from Omayra Hernandez, password provided, requesting to include home medication Lexapro to patient's hospital medication profile. Will endorse to Am shift nurse to discuss with MD in the am.
[2018-09-29] MEDS: ACETAMINOPHEN 500 MG TAB PO PRN (22:39)
[2018-09-30] MEDS: ALBUTEROL SULF 2.5 MG/0.5ML(0.5%) NEB SOLN NEB SCH ×3 (00:15→11:27)
[2018-09-30] MEDS: ACETYLCYSTEINE 10 %(100MG/ML) SOL 4ML NEB SCH ×3 (00:16→11:27)
[2018-09-30] MEDS: IPRATROPIUM BROM 0.5 MG/2.5ML INH SOL NEB SCH ×3 (00:16→11:27)
[2018-09-30 05:00] VITALS: BP 147/98
[2018-09-30] MEDS: methylPREDNISolone SOD SUCC 125 MG/2 ML VL IV SCH (05:59)
[2018-09-30] MEDS: FUROSEMIDE 40 MG TAB PO SCH (06:00)
[2018-09-30] MEDS: ACCU-CHEK COMFORT CURVE STRIP VI SCH ×2 (06:42→12:13)
[2018-09-30] MEDS: InsuLIN REG 1unit/0.01ml Soln (100units/ml) SC SCH ×2 (06:43→12:14)
[2018-09-30 07:38] LABS: INR 2.65 (0.9-1.15); Prothrombin Time 26.8 sec (9.27-12.13)
--- NOTE | 2018-09-30 08:00 | NUR ---
TACHYCARDIA Was contacted by KWABENA to notify the pt's HR was in the 170's. Pt was using bedside commode and showed no acute s/s of distress. Patient on 3L O2 via nasal cannula. Will continue to monitor pt.
--- NOTE | 2018-09-30 08:00 | NUR ---
Opening Shift Note Assumed care of patient, awake, alert and oriented x 4. No S/S of distress/SOB or pain. Patient instructed on POC and to call for assist PRN, bed in lowest locked position with side rails up x 2, will continue to monitor for changes Q1hr and PRN.
[2018-09-30] MEDS: DILTIAZEM HCL 120MG ER CAP PO SCH (08:55)
[2018-09-30] MEDS: PANTOPRAZOLE 40 MG TAB PO SCH (08:56)
[2018-09-30] MEDS: CITALOPRAM HYDROBR 20 MG TAB PO SCH (08:56)
[2018-09-30] MEDS: PHENAZOPYRIDINE HCL 100 MG TAB PO SCH ×2 (08:56→12:16)
[2018-09-30] MEDS: POTASSIUM CHL 10 Meq TABLET PO SCH (08:56)
[2018-09-30 09:06] VITALS: BP 165/95
--- NOTE | 2018-09-30 10:00 | NUR ---
TACHYCARDIA Was contacted by KWABENA to notify pt's HR elevated to the 180's. Was with patient up to toilet. Pt was asymptomatic and showed no s/s of distress. Pt on 3L O2 via nasal cannula. Will continue to monitor pt.
[2018-09-30 12:24] VITALS: BP 149/80
[2018-09-30 13:00] VITALS: BP 149/80
--- NOTE | 2018-09-30 15:15 | NUR ---
Nutrition Follow-up Notes Wt.: 76.9 kg Pt's on oxygen via nasal cannula, asleep, no immediate family member at bedside during rounds this morning. Pt's no signs of distress noted earlier, currently on Consistent Carb diet with adequate PO of > 75% x 2 days per RN doc Est. Needs ABW [id number] kcal (20-23 kcal/kgBW), 61-67 gms pro (1.0-1.1 gms/kgBW). Will continue to monitor pertinent labs and reassess nutrient need prn Labs: GLU 255 H, CO2 34 H, ALB 3.0 L. Skin: Ladarius scale 20 low risk, skin intact per home builder. GI: Pt had 1 BM yesterday per home builder. PES: Altered nutrition related lab values r/t current/chronic medical condition aeb hyperglcyemia, elev A1C, hypocalcemia Obesity r/t hx food intake more than body requirement aeb 172% IBW, BMI 34.8 kg/m2 and increased body adiposity. Will continue to monitor PO intake, skin status, pertinent labs and weight trend. F/u in 3 to 5 days. Rec.: 1.) Continue close supervision during meals. 2.) Refer pt to CDE/RD for further nutrition education and weight monitoring upon discharge. 3.) Continue current plan of care.
--- NOTE | 2018-09-30 15:43 | NUR ---
DISCHARGE Discharge instructions given as ordered. Encouraged to follow up with PMD, [employer] Architect, and [employer] Machine Operator as instructed. All questions and concerns addressed. Patient and daughter verbalized understanding. Medication reconciliation form completed and copy given to patient. IV removed with catheter intact and pressure dressing applied. MRSA swab of nares collected and sent to lab via bullet. Telemetry unit returned to [facility]. Patient taken to vehicle via wheelchair with all personal belongings, accompanied by staff and family member. No distress noted at time of departure.
[2018-09-30] MEDS ORDERED: WARFARIN SODIUM 2 MG TAB PO ONE (17:00)
== END 2018-09-30 15:40 | disposition home or self-care (01) | DRG 689 ==
LOC: ER 16:11 → TELE-WESTW 21:05 → EDBD 21:05
PROVIDERS: ADMIT Nurse Practitioner Family; ATTEND Family Medicine
DX: N10 Acute pyelonephritis (principal); J96.21 Acute and chronic respiratory failure with hypoxia; J44.0 Chronic obstructive pulmonary disease with (acute) lower respiratory infection; I11.0 Hypertensive heart disease with heart failure; K21.9 Gastro-esophageal reflux disease without esophagitis; I48.91 Unspecified atrial fibrillation; I50.9 Heart failure, unspecified; M51.36 Other intervertebral disc degeneration, lumbar region; T17.990A Other foreign object in respiratory tract, part unspecified in causing asphyxiation, initial encounter; I27.20 Pulmonary hypertension, unspecified; D50.9 Iron deficiency anemia, unspecified; E11.9 Type 2 diabetes mellitus without complications; E78.00 Pure hypercholesterolemia, unspecified; E78.5 Hyperlipidemia, unspecified; J20.9 Acute bronchitis, unspecified; Z90.49 Acquired absence of other specified parts of digestive tract; Z79.01 Long term (current) use of anticoagulants; Z82.3 Family history of stroke
CPT/HCPCS: 36415; 36600; 71045; 71046; 71250; 71275; 74176; 78452; 80048; 80053; 81001; 82805; 82962; 83036; 83690; 83735; 83880; 84443; 84484; 85007; 85025; 85027; 85379; 85610; 85730; 87081; 87086; 93005; 93017; 93306; 94640; 94668; 96365; 97116; 97163; 97530; G0378; J0153; J0696; J1815